=== PATIENT | female | born 1970 | race Caucasian/White ===

== ENCOUNTER → 2025-01-05 07:04 | Outpatient (CLI) | payer BC, SELFPAY ==
[2025-01-05 08:17] LABS: Add Manual Diff / Slide Review NO; Hematocrit 40.9 % (36-46); Hemoglobin 14.2 g/dL (12.0-16.0); Lymphocytes Absolute Auto 1900 /uL (1100-4500); Mean Corpuscular HGB Conc 34.7 % (30-36); Mean Corpuscular Hemoglobin 29.7 PG (26-34); Mean Corpuscular Volume 85.8 fL (80-100); Platelet Count 268 X10^3/uL (150-400)
[2025-01-05 08:24] LABS: Hemoglobin A1C% w Est Avg Glu 4.7 % (4.0-6.0)
[2025-01-05 08:33] LABS: HEMOLYSIS < 15 (0-50); Iron 76 ug/dL (37-170)
[2025-01-05 08:35] LABS: Alanine Aminotransferase 16 IU/L (<35); Albumin 4.5 g/dL (3.5-5.0); Albumin Globulin Ratio 1.5 (1.0-2.8); Alkaline Phosphatase 68 U/L (38-126); Blood Urea Nitrogen 20 mg/dL (7-17); Calcium 9.4 mg/dL (8.4-10.2); Carbon Dioxide 20 mmol/L (22-32); Chloride 108 mmol/L (98-107); Estimated Glomerular Filt Rate 50 mL/min (>60); Globulin 3.1 g/dL (1.7-4.1); Glucose 95 mg/dL (70-99); HEMOLYSIS < 15 (0-50); Potassium 4.2 mmol/L (3.4-5.1); Sodium 139 mmol/L (137-145); Total Protein 7.6 g/dL (6.3-8.2)
[2025-01-05 08:46] LABS: Percent Iron Saturation 29 % (15-50); Total Iron Binding Capacity 261 ug/dL (265-497); Transferrin 216 mg/dL (206-381)
[2025-01-05 08:51] LABS: Vitamin D 25 Hydroxy (D3) 39.6 ng/mL (30.0-100.0)
[2025-01-05 09:09] LABS: Ferritin 51 ng/mL (11-264)
[2025-01-05 09:40] LABS: Folate > 20.0 ng/mL (2.76-20.0); Vitamin B12 817 pg/mL (239-931)
== END ==
PROVIDERS: PCP Student in an Organized Health Care Education/Training Program; Referring Provider Student in an Organized Health Care Education/Training Program; Visit Provider Student in an Organized Health Care Education/Training Program
DX: N18.31 Chronic kidney disease, stage 3a (principal); R53.83 Other fatigue
CPT/HCPCS: 36415; 80053; 82306; 82607; 82728; 82746; 83036; 83540; 83550; 85025